=== PATIENT | male | born 1955 | race Caucasian/White ===

== ENCOUNTER 2017-03-23 13:19 | Emergency (ER) | payer BC ==
[~2017-03-23] VITALS: Ht 188 cm; Wt 113.4 kg
[~2017-03-23 13:19] MED LIST: CYCL1TAB18 PO; DILT180C88 PO; DRON400T PO; MELO1TAB56 PO; PANT40TA2 PO; VALS320T15 PO
[2017-03-23] MEDS ORDERED: CALCIUM CHLOR(10%) 100MG/ML 10ML SYRINGE IV ONE (13:20)
[2017-03-23] MEDS ORDERED: DEXTROSE (50%) 50ML SYRG IV ONE (13:20)
[2017-03-23] MEDS ORDERED: EPINEPHrine HCL 1 MG/10 ML SYRG IV ONE (13:20)
[2017-03-23] MEDS ORDERED: SODIUM BICARBONATE 8.4% INJ 50ML SYRINGE ONE (13:23)
== END 2017-03-23 19:40 | disposition expired ==
LOC: EDBD 13:19 → EDSEX 13:19 → ER 13:19
DX: I46.9 Cardiac arrest, cause unspecified (principal); I48.91 Unspecified atrial fibrillation; I10 Essential (primary) hypertension; Z88.8 Allergy status to other drugs, medicaments and biological substances; Z79.899 Other long term (current) drug therapy; Z88.6 Allergy status to analgesic agent
CPT/HCPCS: 31500; 92950; 99285; J0171; J7042